=== PATIENT | male | born 1950 | race Caucasian/White ===

== ENCOUNTER 2017-07-17 08:43 | Outpatient (CLI) | payer MEDICARE ==
--- NOTE | 2017-07-17 09:40 | RAD ---
LEFT KNEE 2 VIEWS: HISTORY: Left knee pain. FINDINGS: There is mild joint space narrowing at the medial compartment with mild tricompartmental osteophytosi s. No acute fracture, dislocation, or fluid distention of the joint capsule. IMPRESSION: Mild osteoarthritic changes left knee. POS: [facility]
== END 2017-07-17 08:44 | disposition home or self-care (01) ==
LOC: SCSRAD 08:43
PROVIDERS: ATTEND Family Medicine
DX: M25.562 Pain in left knee (principal); M17.12 Unilateral primary osteoarthritis, left knee

== ENCOUNTER 2017-08-08 09:31 | Day surgery (SDC) | payer MEDICARE ==
[2017-08-07 09:06] VITALS: BMI 49.1
--- NOTE | 2017-08-08 13:28 | OP ---
DATE OF PROCEDURE: 08/08/2017 PROCEDURE: Esophagogastroduodenoscopy with biopsy. INDICATION FOR PROCEDURE: History of gastric ulcers, melena. DESCRIPTION OF PROCEDURE: After the risks and benefits of the procedure were explained to the patient including risks of bleeding, infection, perforation, reaction to anesthesia, and/or pain, informed consent was obtained. The patient was then taken to the endoscopy suite where deep sedation was administered via propofol and anesthesia support. Once adequate sedation was achieved, a standard gastroscope was then introduced into the mouth with intubation of the esophagus, stomach, and the proximal small intestine with the findings listed below. The patient tolerated the procedure well with no immediate perioperative complications. FINDINGS: Esophagus: Normal-appearing mucosa was seen in the proximal, mid, and distal esophagus. The diaphragmatic pinch was seen at 46 cm while the GE junction was well seen at 44 cm denoting a 2 cm hiatal hernia. There was no evidence of erosions, ulcerations, or mass lesions. Stomach: Normal-appearing mucosa was seen in the gastric cardia, fundus, body, and incisura. Slightly increased mucosal erythema with polypoid-appearing mucosa was seen in the gastric antrum just proximal to the pylorus. This site was consistent with prior ulcer site, but there was no evidence of erosions or ulcerations at this site currently. Biopsies were taken of this region for further evaluation for possible H. pylori. Otherwise, there was no evidence of erosions, ulcerations, mass lesions, or active/recent bleeding seen throughout the remainder of the stomach. Duodenum: Normal-appearing mucosa was seen in both the duodenal bulb and second portion of the duodenum. There was no evidence of erosions, ulcerations , or mass lesions. IMPRESSION: 1. Increased mucosal erythema and polypoid-appearing mucosa in the gastric antrum consistent with prior healed gastric ulcer, status post biopsies for evaluation. 2. A 2 cm hiatal hernia. RECOMMENDATIONS: 1. I would continue PPI 40 mg twice daily for the next month, then decrease to 40 mg once daily. 2. We would continue to monitor clinically for any signs of melena/active gastrointestinal bleeding. 3. We will follow up on biopsy results and place the patient on quadruple therapy if positive for H. pylori. 4. We would have patient follow up in the GI clinic in 3 weeks for followup on acid reflux/gastric ulcers and review biopsy results at that time. [facility]
[2017-08-08] MEDS ORDERED: Lidocaine 1% PF 5 ML VIAL ONE (14:05)
[2017-08-08] MEDS ORDERED: PROPOFOL 200 MG/20 ML VIAL ONE (14:05)
== END 2017-08-08 13:10 | disposition home or self-care (01) ==
LOC: SDC 09:31
PROVIDERS: ATTEND Internal Medicine
PROC: 0DB78ZX Excision of Stomach, Pylorus, Via Natural or Artificial Opening Endoscopic, Diagnostic (ICD-10-PCS; principal; 2017-08-08)
DX: K31.9 Disease of stomach and duodenum, unspecified (principal); K44.9 Diaphragmatic hernia without obstruction or gangrene; I48.91 Unspecified atrial fibrillation; I10 Essential (primary) hypertension; E78.00 Pure hypercholesterolemia, unspecified; E11.9 Type 2 diabetes mellitus without complications; Z79.84 Long term (current) use of oral hypoglycemic drugs; Z79.899 Other long term (current) drug therapy; Z87.19 Personal history of other diseases of the digestive system
CPT/HCPCS: 88305; 88312; J2001; J2704

== ENCOUNTER 2017-08-10 09:09 | Outpatient (CLI) | payer MEDICARE ==
--- NOTE | 2017-08-10 11:15 | ULT ---
LIMITED ULTRASOUND OF THE ABDOMINAL AORTA: HISTORY: Former smoker with atherosclerotic disease. Evaluate for abdominal aortic aneurysm. COMPARISON: None. TECHNIQUE: Multiplanar michael-scale and color Doppler images were obtained in a limited ultrasound of the abdomina l aorta. FINDINGS: The aorta is normal in caliber without evidence of aneurysmal dilatation or dissection. The aorta me asures 2.8 cm in greatest dimension, proximally. The aortic bifurcation cannot be seen, as it was ob scured by bowel gas. IMPRESSION: No evidence of abdominal aortic aneurysm. POS: [facility]
== END 2017-08-10 09:10 | disposition home or self-care (01) ==
LOC: SCSULT 09:09
PROVIDERS: ATTEND Family Medicine
DX: Z13.6 Encounter for screening for cardiovascular disorders (principal); Z12.5 Encounter for screening for malignant neoplasm of prostate
CPT/HCPCS: 36415; 76775; G0103

== ENCOUNTER 2017-08-11 07:58 | Outpatient (CLI) | payer MEDICARE ==
--- NOTE | 2017-08-11 09:40 | CT ---
CT OF THE CHEST WITHOUT CONTRAST LOW DOSE CANCER SCREENING PROTOCOL: History: 40 pack year smoking history. Patient quit smoking 10 years ago. Technique: Multiple contiguous axial images were obtained in a CT of the chest without contrast per low dose can cer screening protocol. Sagittal and coronal reformats were performed. FINDINGS: No pulmonary nodules are seen. No focal infiltrates are seen in the lungs. No pneumothorax or pleural effusion is seen. The heart is normal in size without focal cardiac abnormality. No hilar or mediastinal lymphadenopath y are seen. The visualized subdiaphragmatic structures are unremarkable. Degenerative changes are seen in the spi ne. The chest wall soft tissues are unremarkable. IMPRESSION: 1. Lung rads category 1 - negative. POS: [facility]
== END 2017-08-11 07:59 | disposition home or self-care (01) ==
LOC: CT 07:58
PROVIDERS: ATTEND Family Medicine
DX: Z87.891 Personal history of nicotine dependence (principal)
CPT/HCPCS: G0297

== ENCOUNTER 2018-08-29 05:16 | Outpatient (CLI) | payer MEDICARE ==
[2018-08-29 13:44] LABS: Hemoglobin 15.5 g/dL (14.0-18.0); Mean Corpuscular HGB CONC 33.3 g/dL (32.0-36.0); Mean Corpuscular Hemoglobin 33.1 pg (27.0-31.0); Mean Corpuscular Volume 99.1 fL (78.0-98.0); Mean Platelet Volume 10.7 fL (7.4-10.4); Platelet Count 152 thou/uL (130-400); RBC Distribution Width 13.4 % (11.5-14.5); Red Blood Cell (RBC) Count 4.68 mill/uL (4.70-6.10); White Blood Cell (WBC) Count 7.1 thou/uL (4.8-10.8)
[2018-08-29 13:52] LABS: PTT 30.6 SEC (22.9-36.1); Prothrombin Time 13.6 SEC (12.0-14.7)
[2018-08-29 14:03] LABS: Anion Gap 16 mmol/L (10-20); BUN (Urea Nitrogen) 18 mg/dL (8.4-25.7); Calc. Creatinine Clearance 0 mL/min (70-130); Calcium 9.4 mg/dL (7.8-10.44); Carbon Dioxide 24 mmol/L (23-31); Chloride 105 mmol/L (98-107); Estimated GFR-MDRD 47; Glucose 87 mg/dL (80-115); Potassium 4.9 mmol/L (3.5-5.1); Sodium 140 mmol/L (136-145)
[2018-08-29 14:35] LABS: RBC/HPF 0-3 HPF (0-3); Squamous Epithelial 0-3 HPF (0-3); WBC/HPF 0-3 HPF (0-3)
[2018-08-29 14:36] LABS: Bacteria/HPF None Seen HPF (None Seen); Hyaline Casts/LPF NONE SEEN LPF (0-3 Hyaline)
--- NOTE | 2018-08-29 20:31 | EKG ---
Test Reason : Blood Pressure : / mmHG Vent. Rate : 084 BPM Atrial Rate : 125 BPM P-R Int : 000 ms QRS Dur : 104 ms QT Int : 388 ms P-R-T Axes : 000 071 047 degrees QTc Int : 458 ms Atrial fibrillation Low voltage QRS Incomplete right bundle branch block Abnormal ECG No previous ECGs available Confirmed by NIGEL BENÍTEZ, DR. Sands ([id number]) on 08/29/2018 8:31:23 PM Referred By: NEVA Confirmed By:DR. Wicho MANNING MD
== END 2018-08-29 05:17 | disposition home or self-care (01) ==
LOC: LABBT 05:16
PROVIDERS: ATTEND Urology
DX: Z01.818 Encounter for other preprocedural examination (principal); N40.1 Benign prostatic hyperplasia with lower urinary tract symptoms
CPT/HCPCS: 80048; 81015; 85027; 85610; 85730; 87070; 87086; 87205; 87252; 93005; 93010

== ENCOUNTER 2018-09-12 05:50 | Day surgery (SDC) | payer MEDICARE ==
[2018-08-29 11:12] VITALS: BMI 43.4
[2018-09-12] MEDS ORDERED: Levofloxacin 500 mg/D5W 100 ml Premix Bag ONE (06:25)
[2018-09-12] MEDS ORDERED: Fentanyl 100 MCG/2 ML VIAL ONE ×3 (07:10→09:06)
[2018-09-12] MEDS ORDERED: Phenazopyridine HCl 97.5 MG TABLET ONE (08:52)
--- NOTE | 2018-09-12 09:57 | OP ---
DATE OF PROCEDURE: 09/12/2018 PREOPERATIVE DIAGNOSIS: A 68-year-old male with history of benign prostatic hypertrophy, persistent symptoms despite medical therapy. POSTOPERATIVE DIAGNOSIS: A 68-year-old male with history of benign prostatic hypertrophy, persistent symptoms despite medical therapy. PROCEDURE PERFORMED: Cystoscopy, UroLift implant x7. ANESTHESIA: LMA. COMPLICATIONS: None. DISPOSITION: To recovery room in stable condition. ESTIMATED BLOOD LOSS: Minimal. INDICATIONS FOR PROCEDURE AND HISTORY: Mr. Cobb is a 68-year-old male with history of BPH, has been provided dual medical therapy and has persistent BPH symptoms, desired to proceed with UroLift implant. He underwent cystoscopy demonstrating moderately obstructing lateral lobes with no median lobe, chest volume 28 g. He was offered various treatment options including observation, TURP, desired to proceed with minimally invasive approach. Risks and complications of the procedure were extensively discussed with the patient including chronic pain, migration of implant, injury to adjacent organs, encrustation, bleeding, chronic pelvic pain. All questions were answered to his satisfaction and desired to proceed. DESCRIPTION OF PROCEDURE: After an informed consent was signed, the patient was taken to the operating room, placed in a dorsal lithotomy position with the genital area prepped and draped in the usual surgical sterile fashion. Broad-spectrum antibiotics were provided. A 20-Tai[place]ese cystoscope with a 0-degree lens was passed via the UroLift delivery bridge. There was a subtle bulbar stricture nonobstructing. Bilobar moderately obstructing lateral lobes were noted with high median bar. The ureteral orifices were about 3 to 4 mm away with no evidence of intravesical median lobe. The first treatment site was deployed at the patient' s left side approximately 1.5 to 2 cm distal to the bladder neck. The tip of the delivery device was angled laterally about 20 degrees at the position to compress the lateral lobe. We deployed the first implant allowing good bladder neck opening. The needle was retracted allowing one of the implants to be delivered to the capsular surface. The implant was tensioned to assure proper capsular seeding and removal of slack monofilament. This was repeated bilaterally. A total of 7 implants were required to open a nice channel. Intraoperative photos were taken demonstrating good bladder neck channel/opening, resolution of obstructing lateral lobes were noted. We routinely staged his bladder between implants demonstrating no significant trauma to the bladder neck. At the end of the procedure, I did transition to a cystoscope with a 30- and 70-degree lens, which demonstrated no evidence of foreign body or implant of suture nidus within the bladder. A 16- Taiwanese 10 mL Morel catheter was placed without significant issues and attached to leg bag. I will monitor the patient postop, anticipate he will be discharged with Morel catheter for a voiding trial tomorrow. If urine is absolutely clear, I will consider voiding trial before discharge. He is sent home with ciprofloxacin 500 mg one p.o. b.i.d. for 5 days. Appointment tomorrow for a voiding trial, if he is sent home with Morel catheter. Job ID: [id number] MTDD
[2018-09-12] MEDS ORDERED: HYDROcodone/Acetaminophen 5/325 mg Tablet ONE (12:28)
[2018-09-12] MEDS ORDERED: Morphine 2 MG/ML SYRINGE ONE (13:27)
[2018-09-12] MEDS ORDERED: Lidocaine 1% PF 5 ML VIAL ONE (15:02)
[2018-09-12] MEDS ORDERED: Ondansetron PF 4 MG/2 ML Vial ONE (15:02)
[2018-09-12] MEDS ORDERED: Dexamethasone 20 MG/5 ML VIAL ONE (15:02)
[2018-09-12] MEDS ORDERED: PROPOFOL 200 MG/20 ML VIAL ONE (15:02)
== END 2018-09-12 15:15 | disposition home or self-care (01) ==
LOC: SDC 05:50
PROVIDERS: ATTEND Urology
PROC: 0T7D8DZ Dilation of Urethra with Intraluminal Device, Via Natural or Artificial Opening Endoscopic (ICD-10-PCS; principal; 2018-09-12)
DX: N40.1 Benign prostatic hyperplasia with lower urinary tract symptoms (principal); E11.9 Type 2 diabetes mellitus without complications; I10 Essential (primary) hypertension; I48.91 Unspecified atrial fibrillation; G47.33 Obstructive sleep apnea (adult) (pediatric); M10.9 Gout, unspecified; Z79.82 Long term (current) use of aspirin; Z79.899 Other long term (current) drug therapy; Z87.891 Personal history of nicotine dependence
CPT/HCPCS: C1889; C9740; J1100; J1956; J2001; J2270; J2405; J2704; J3010